=== PATIENT | male | born 1970 | race Caucasian/White ===

== ENCOUNTER 2020-07-19 11:51 | Emergency (ER) | payer SELFPAY ==
[~2020-07-19] VITALS: Ht 180.3 cm; Wt 108.9 kg
[2020-07-19 12:37] LABS: BASO % 0.6 % (0.0-1.0); EOS # 0.4 10*3/uL (0.0-0.4); EOS % 5.1 % (1.0-4.0); HEMATOCRIT 47.5 % (42.0-52.0); LYMPH % 27.8 % (27.0-41.0); MEAN CORPUSCULAR HGB 29.7 pg (27.0-31.0); MEAN CORPUSCULAR HGB CONC 35.8 g/dl (33.0-37.0); MEAN PLATELET VOLUME 10.6 fl (9.6-12.3); MONO # 0.6 10*3/uL (0.1-1.0); MONO % 8.6 % (3.0-9.0); NEUT # 4.1 10*3/uL (2.3-7.9); NEUT % 57.6 % (47.0-73.0); PLATELET COUNT AUTOMATED 297 10*3/uL (130-400); RED BLOOD COUNT 5.72 10*6/uL (4.50-5.90); RED CELL DISTRI WIDTH 12.8 % (0-14.5); WHITE BLOOD COUNT 7.1 10*3/uL (4.8-10.8)
[2020-07-19 13:07] LABS: ALBUMIN 3.9 gm/dl (3.1-4.5); ALKALINE PHOSPHATASE 107 U/L (45-117); BUN 12 mg/dl (7-24); CHLORIDE 102 mmol/L (98-107); CREATININE 0.85 mg/dL (0.70-1.30); LIPASE 88 U/L (73-393); SGOT/AST 46 IU/L (3-35); SODIUM 134 mmol/L (136-145); TOTAL PROTEIN 8.4 gm/dL (6.4-8.2)
[2020-07-19 13:11] LABS: BILIRUBIN Negative (Negative); BLOOD Trace-Lysed (Negative); CLARITY Clear (Clear); COLOR Yellow (Yellow); GLUCOSE 3+ (Negative); KETONE 1+ (Negative); LEUKO ESTERASE Negative (Negative); NITRITE Negative (Negative); PH 5.5 (4.5-8.0); SPECIFIC GRAVITY >= 1.030 (1.001-1.030); UROBILINOGEN 0.2 E.U./dl (0.0-1.0)
[2020-07-19 13:18] LABS: SGPT/ALT 46 U/L (12-78)
[2020-07-19 13:19] LABS: POTASSIUM 4.7 mmol/L (3.5-5.1)
[2020-07-19 13:40] LABS: BACTERIA TRACE; EPITHELIAL CELLS 0-2; WBC 0-2 wbc/hpf (0-5)
== END 2020-07-19 13:51 | disposition home or self-care (01) ==
LOC: ED 11:51
PROVIDERS: Nurse Practitioner Family
DX: K42.9 Umbilical hernia without obstruction or gangrene (principal); Z88.8 Allergy status to other drugs, medicaments and biological substances

== ENCOUNTER 2021-08-02 03:05 | Emergency (ER) | payer OTHER ==
[~2021-08-02] VITALS: Ht 177.8 cm; Wt 108.9 kg
[2021-08-02] MEDS ORDERED: METFORMIN HYD1000 MG PO (03:32)
[2021-08-02] MEDS ORDERED: ZESTORETIC 10-1 EACH PO (03:33)
[2021-08-02] MEDS ORDERED: LIPITOR20 MG PO (03:33)
[2021-08-02] MEDS ORDERED: JANUVIA50 MG PO (03:33)
[2021-08-02 03:54] LABS: BILIRUBIN Negative (Negative); BLOOD Negative (Negative); CLARITY Clear (Clear); COLOR Yellow (Yellow); GLUCOSE 3+ (Negative); KETONE 1+ (Negative); LEUKO ESTERASE Negative (Negative); NITRITE Negative (Negative); PH 6.5 (4.5-8.0); SPECIFIC GRAVITY >= 1.030 (1.001-1.030)
[2021-08-02] MEDS ORDERED: ULTRAM50 MG PO (04:56)
[2021-08-02] MEDS ORDERED: PREDNISONE20 M1 PO (04:56)
[2021-08-02] MEDS ORDERED: CYCLOBENZAPRINE10 MG PO (04:56)
== END 2021-08-02 05:07 | disposition home or self-care (01) ==
LOC: ED 03:05
PROVIDERS: Emergency Medicine
DX: S39.012A Strain of muscle, fascia and tendon of lower back, initial encounter (principal); M62.830 Muscle spasm of back; G58.8 Other specified mononeuropathies; Z88.6 Allergy status to analgesic agent; Z88.8 Allergy status to other drugs, medicaments and biological substances; Z79.899 Other long term (current) drug therapy; X58.XXXA Exposure to other specified factors, initial encounter; Y93.89 Activity, other specified; Y92.89 Other specified places as the place of occurrence of the external cause; Y99.8 Other external cause status

== ENCOUNTER 2023-01-05 11:47 | Inpatient (IN) | payer OTHER ==
[~2023-01-05] VITALS: Ht 177.8 cm; Wt 107.3 kg
[2023-01-05 01:04] VITALS: BP 103/61
[2023-01-05 01:28] VITALS: BP 110/53
[~2023-01-05 11:47] MED LIST: CYCLOBENZAPRINE10 MG PO; JANUVIA50 MG PO; LIPITOR20 MG PO; METFORMIN HYD1000 MG PO; PREDNISONE20 M1 PO; ULTRAM50 MG PO; ZESTORETIC 10-1 EACH PO
[2023-01-05 12:05] VITALS: BP 149/87
[2023-01-05 13:23] LABS: BILIRUBIN Negative (Negative); BLOOD Negative (Negative); CLARITY Clear (Clear); COLOR Yellow (Yellow); GLUCOSE 3+ (Negative); KETONE Trace (Negative); LEUKO ESTERASE Negative (Negative); NITRITE Negative (Negative); SPECIFIC GRAVITY >= 1.030 (1.001-1.030); UROBILINOGEN 0.2 E.U./dl (0.0-1.0)
[2023-01-05 13:28] LABS: ALKALINE PHOSPHATASE 53 U/L (46-116); BUN 14 mg/dl (9-23); CHLORIDE 96 mmol/L (98-107); LIPASE 81 U/L (12-53); SGPT/ALT 57 U/L (10-49); TOTAL PROTEIN 7.9 gm/dL (6.0-8.0)
[2023-01-05 13:53] LABS: BACTERIA 1+; RBC 0-2 rbc/hpf (0-2)
[2023-01-05 14:43] LABS: HEMATOCRIT 41.7 % (42.0-52.0); MEAN CELL VOLUME 82.7 fl (80.0-94.0); MEAN PLATELET VOLUME 11.3 fl (9.6-12.3); PLATELET COUNT AUTOMATED 281 10*3/uL (130-400); RED BLOOD COUNT 5.04 10*6/uL (4.50-5.90)
[2023-01-05 15:22] LABS: MANUAL DIFF REFLEX YES; MEAN CORPUSCULAR HGB 28.2 pg (27.0-31.0); MEAN CORPUSCULAR HGB CONC 34.1 g/dl (33.0-37.0)
[2023-01-05 15:23] LABS: WHITE BLOOD COUNT 11.8 10*3/uL (4.8-10.8)
[2023-01-05 15:25] LABS: BASOPHILS 2 % (0-1); OVALOCYTES FEW; PLATELET SUFFICIENCY NORMAL (NORMAL); POLYCHROMASIA SLIGHT; TOTAL CELLS COUNTED 100 #CELLS
[2023-01-05 15:59] LABS: ACT PARTIAL THROMBO TIME 28.3 SECONDS (20.0-32.1); INTERNATIONAL NORM RATIO 0.9 (2.0-3.5)
[2023-01-05] MEDS ORDERED: ASPIRIN ADULT L81 M2 PO (17:19)
[2023-01-05] MEDS ORDERED: FENOFIBRATE MI134 MG PO (17:19)
[2023-01-05] MEDS ORDERED: ZESTORETIC 10-1 EACH PO (17:20)
[2023-01-05] MEDS ORDERED: ATORVASTATIN CA40 M1 PO (17:20)
[2023-01-05] MEDS ORDERED: METFORMIN XR500 MG PO (17:20)
[2023-01-05 18:08] LABS: BUN 13 mg/dl (9-23); CHLORIDE 96 mmol/L (98-107)
[2023-01-05 18:44] LABS: POTASSIUM 4.7 mmol/L (3.4-5.1)
[2023-01-05] MEDS ORDERED: JANUVIA100 MG PO (21:15)
[2023-01-06] VITALS (15 sets, daily range): BP systolic 70–137; BP diastolic 37–83
[2023-01-06 07:34] LABS: BASO # 0.1 10*3/uL (0.0-0.1); BASO % 0.4 % (0.0-1.0); EOS # 0.3 10*3/uL (0.0-0.4); EOS % 2.8 % (1.0-4.0); HEMATOCRIT 41.8 % (42.0-52.0); LYMPH # 1.8 10*3/uL (1.3-4.4); LYMPH % 14.8 % (27.0-41.0); MEAN CELL VOLUME 84.4 fl (80.0-94.0); MEAN CORPUSCULAR HGB 29.9 pg (27.0-31.0); MEAN CORPUSCULAR HGB CONC 35.4 g/dl (33.0-37.0); MEAN PLATELET VOLUME 10.9 fl (9.6-12.3); MONO # 1.3 10*3/uL (0.1-1.0); MONO % 10.7 % (3.0-9.0); NEUT # 8.6 10*3/uL (2.3-7.9); NEUT % 70.8 % (47.0-73.0); PLATELET COUNT AUTOMATED 251 10*3/uL (130-400); RED BLOOD COUNT 4.95 10*6/uL (4.50-5.90); RED CELL DISTRI WIDTH 13.9 % (0-14.5); WHITE BLOOD COUNT 12.2 10*3/uL (4.8-10.8)
[2023-01-06 08:10] LABS: ALKALINE PHOSPHATASE 61 U/L (46-116); BUN 12 mg/dl (9-23); CHLORIDE 94 mmol/L (98-107); LIPASE 48 U/L (12-53); POTASSIUM 4.1 mmol/L (3.4-5.1); SGPT/ALT 33 U/L (10-49)
[2023-01-06 17:03] LABS: HEMATOCRIT 36.1 % (42.0-52.0)
[2023-01-06 19:08] LABS: BASO % 0.2 % (0.0-1.0); EOS % 0.2 % (1.0-4.0); LYMPH % 7.9 % (27.0-41.0); MEAN CELL VOLUME 88.3 fl (80.0-94.0); MEAN CORPUSCULAR HGB 29.9 pg (27.0-31.0); MEAN CORPUSCULAR HGB CONC 33.8 g/dl (33.0-37.0); MEAN PLATELET VOLUME 11.1 fl (9.6-12.3); MONO # 1.4 10*3/uL (0.1-1.0); MONO % 11.2 % (3.0-9.0); NEUT # 10.3 10*3/uL (2.3-7.9); NEUT % 80.1 % (47.0-73.0); PLATELET COUNT AUTOMATED 233 10*3/uL (130-400); RED BLOOD COUNT 3.85 10*6/uL (4.50-5.90); RED CELL DISTRI WIDTH 14.2 % (0-14.5); WHITE BLOOD COUNT 12.9 10*3/uL (4.8-10.8)
[2023-01-06 21:14] LABS: BASO % 0.3 % (0.0-1.0); EOS % 0.2 % (1.0-4.0); HEMATOCRIT 32.7 % (42.0-52.0); LYMPH # 1.1 10*3/uL (1.3-4.4); LYMPH % 8.5 % (27.0-41.0); MEAN CELL VOLUME 88.9 fl (80.0-94.0); MEAN CORPUSCULAR HGB 29.1 pg (27.0-31.0); MEAN CORPUSCULAR HGB CONC 32.7 g/dl (33.0-37.0); MEAN PLATELET VOLUME 10.9 fl (9.6-12.3); MONO # 1.5 10*3/uL (0.1-1.0); MONO % 11.8 % (3.0-9.0); NEUT # 9.8 10*3/uL (2.3-7.9); NEUT % 78.8 % (47.0-73.0); PLATELET COUNT AUTOMATED 219 10*3/uL (130-400); RED BLOOD COUNT 3.68 10*6/uL (4.50-5.90); RED CELL DISTRI WIDTH 14.1 % (0-14.5); WHITE BLOOD COUNT 12.4 10*3/uL (4.8-10.8)
[2023-01-07] VITALS (7 sets, daily range): BP systolic 87–110; BP diastolic 48–60
[2023-01-07 02:03] LABS: BASO % 0.2 % (0.0-1.0); EOS % 0.2 % (1.0-4.0); HEMATOCRIT 29.9 % (42.0-52.0); LYMPH % 10.5 % (27.0-41.0); MEAN CELL VOLUME 88.2 fl (80.0-94.0); MEAN CORPUSCULAR HGB 29.2 pg (27.0-31.0); MEAN CORPUSCULAR HGB CONC 33.1 g/dl (33.0-37.0); MEAN PLATELET VOLUME 10.6 fl (9.6-12.3); MONO # 1.1 10*3/uL (0.1-1.0); MONO % 11.2 % (3.0-9.0); NEUT # 7.4 10*3/uL (2.3-7.9); NEUT % 77.6 % (47.0-73.0); PLATELET COUNT AUTOMATED 209 10*3/uL (130-400); RED BLOOD COUNT 3.39 10*6/uL (4.50-5.90); RED CELL DISTRI WIDTH 14.1 % (0-14.5); WHITE BLOOD COUNT 9.6 10*3/uL (4.8-10.8)
[2023-01-07 06:19] LABS: BASO % 0.2 % (0.0-1.0); EOS # 0.1 10*3/uL (0.0-0.4); EOS % 0.7 % (1.0-4.0); HEMATOCRIT 28.8 % (42.0-52.0); LYMPH # 1.2 10*3/uL (1.3-4.4); LYMPH % 13.5 % (27.0-41.0); MEAN CELL VOLUME 90.6 fl (80.0-94.0); MEAN CORPUSCULAR HGB 29.2 pg (27.0-31.0); MEAN CORPUSCULAR HGB CONC 32.3 g/dl (33.0-37.0); MEAN PLATELET VOLUME 11.2 fl (9.6-12.3); MONO # 1.2 10*3/uL (0.1-1.0); MONO % 12.7 % (3.0-9.0); NEUT # 6.6 10*3/uL (2.3-7.9); NEUT % 72.5 % (47.0-73.0); PLATELET COUNT AUTOMATED 205 10*3/uL (130-400); RED BLOOD COUNT 3.18 10*6/uL (4.50-5.90); WHITE BLOOD COUNT 9.1 10*3/uL (4.8-10.8)
[2023-01-07 06:25] LABS: ALKALINE PHOSPHATASE 51 U/L (46-116); BUN 18 mg/dl (9-23); CHLORIDE 100 mmol/L (98-107); POTASSIUM 4.1 mmol/L (3.4-5.1); SGPT/ALT 192 U/L (10-49); TOTAL PROTEIN 5.7 gm/dL (6.0-8.0)
[2023-01-07 10:30] LABS: BILIRUBIN Negative (Negative); BLOOD Negative (Negative); CLARITY Cloudy (Clear); COLOR Yellow (Yellow); GLUCOSE 3+ (Negative); KETONE Negative (Negative); LEUKO ESTERASE 1+ (Negative); NITRITE Negative (Negative); PH 5.5 (4.5-8.0); SPECIFIC GRAVITY 1.025 (1.001-1.030); UROBILINOGEN 0.2 E.U./dl (0.0-1.0)
[2023-01-07 10:50] LABS: BACTERIA 2+; WBC TNTC wbc/hpf (0-5)
[2023-01-07 10:51] LABS: YEAST 3+
[2023-01-07 17:00] LABS: BASO % 0.4 % (0.0-1.0); EOS # 0.3 10*3/uL (0.0-0.4); EOS % 3.7 % (1.0-4.0); HEMATOCRIT 25.8 % (42.0-52.0); LYMPH # 1.3 10*3/uL (1.3-4.4); LYMPH % 15.7 % (27.0-41.0); MEAN CELL VOLUME 88.7 fl (80.0-94.0); MEAN CORPUSCULAR HGB 29.6 pg (27.0-31.0); MEAN CORPUSCULAR HGB CONC 33.3 g/dl (33.0-37.0); MEAN PLATELET VOLUME 10.3 fl (9.6-12.3); MONO # 1.3 10*3/uL (0.1-1.0); NEUT # 5.5 10*3/uL (2.3-7.9); NEUT % 64.8 % (47.0-73.0); PLATELET COUNT AUTOMATED 167 10*3/uL (130-400); RED BLOOD COUNT 2.91 10*6/uL (4.50-5.90); WHITE BLOOD COUNT 8.5 10*3/uL (4.8-10.8)
[2023-01-07 17:14] LABS: BUN 22 mg/dl (9-23); CHLORIDE 102 mmol/L (98-107); POTASSIUM 3.7 mmol/L (3.4-5.1)
[2023-01-08] VITALS: BP 144/59
[2023-01-08 04:14] VITALS: BP 113/60
[2023-01-08 06:23] LABS: ALKALINE PHOSPHATASE 64 U/L (46-116); BUN 14 mg/dl (9-23); CHLORIDE 103 mmol/L (98-107); POTASSIUM 3.7 mmol/L (3.4-5.1); SGPT/ALT 222 U/L (10-49); TOTAL PROTEIN 5.6 gm/dL (6.0-8.0)
[2023-01-08 06:26] LABS: BASO % 0.3 % (0.0-1.0); EOS # 0.4 10*3/uL (0.0-0.4); EOS % 4.6 % (1.0-4.0); HEMATOCRIT 24.5 % (42.0-52.0); LYMPH # 1.3 10*3/uL (1.3-4.4); MEAN CELL VOLUME 88.4 fl (80.0-94.0); MEAN CORPUSCULAR HGB 28.9 pg (27.0-31.0); MEAN CORPUSCULAR HGB CONC 32.7 g/dl (33.0-37.0); MEAN PLATELET VOLUME 11.3 fl (9.6-12.3); MONO # 1.2 10*3/uL (0.1-1.0); MONO % 14.2 % (3.0-9.0); NEUT # 5.7 10*3/uL (2.3-7.9); NEUT % 65.6 % (47.0-73.0); PLATELET COUNT AUTOMATED 185 10*3/uL (130-400); RED BLOOD COUNT 2.77 10*6/uL (4.50-5.90); RED CELL DISTRI WIDTH 13.8 % (0-14.5); WHITE BLOOD COUNT 8.7 10*3/uL (4.8-10.8)
[2023-01-08 08:00] VITALS: BP 134/78
[2023-01-08 12:00] VITALS: BP 129/64
[2023-01-08 16:00] VITALS: BP 111/65
[2023-01-08 20:00] VITALS: BP 124/77
[2023-01-09] VITALS: BP 118/70
[2023-01-09 04:00] VITALS: BP 135/81
[2023-01-09 05:39] LABS: ALKALINE PHOSPHATASE 79 U/L (46-116); BUN 8 mg/dl (9-23); CHLORIDE 100 mmol/L (98-107); POTASSIUM 4.3 mmol/L (3.4-5.1); SGPT/ALT 170 U/L (10-49); TOTAL PROTEIN 6.3 gm/dL (6.0-8.0)
[2023-01-09 06:15] LABS: BASO % 0.4 % (0.0-1.0); EOS # 0.5 10*3/uL (0.0-0.4); EOS % 5.6 % (1.0-4.0); HEMATOCRIT 25.5 % (42.0-52.0); LYMPH # 1.6 10*3/uL (1.3-4.4); LYMPH % 17.2 % (27.0-41.0); MEAN CELL VOLUME 88.2 fl (80.0-94.0); MEAN CORPUSCULAR HGB 29.4 pg (27.0-31.0); MEAN CORPUSCULAR HGB CONC 33.3 g/dl (33.0-37.0); MEAN PLATELET VOLUME 11.1 fl (9.6-12.3); MONO # 1.3 10*3/uL (0.1-1.0); MONO % 13.9 % (3.0-9.0); NEUT # 5.6 10*3/uL (2.3-7.9); NEUT % 62.3 % (47.0-73.0); PLATELET COUNT AUTOMATED 237 10*3/uL (130-400); RED BLOOD COUNT 2.89 10*6/uL (4.50-5.90); RED CELL DISTRI WIDTH 13.5 % (0-14.5)
[2023-01-09 08:00] VITALS: BP 111/65
[2023-01-09 12:00] VITALS: BP 130/81
[2023-01-09 16:00] VITALS: BP 132/80
[2023-01-09 20:00] VITALS: BP 115/90
[2023-01-10] VITALS: BP 114/77
[2023-01-10 07:01] LABS: BASO % 0.5 % (0.0-1.0); EOS # 0.5 10*3/uL (0.0-0.4); EOS % 5.7 % (1.0-4.0); HEMATOCRIT 27.6 % (42.0-52.0); LYMPH # 1.5 10*3/uL (1.3-4.4); LYMPH % 17.6 % (27.0-41.0); MEAN CELL VOLUME 87.9 fl (80.0-94.0); MEAN CORPUSCULAR HGB 29.3 pg (27.0-31.0); MEAN CORPUSCULAR HGB CONC 33.3 g/dl (33.0-37.0); MEAN PLATELET VOLUME 10.6 fl (9.6-12.3); MONO # 1.3 10*3/uL (0.1-1.0); NEUT # 5.3 10*3/uL (2.3-7.9); NEUT % 60.5 % (47.0-73.0); PLATELET COUNT AUTOMATED 301 10*3/uL (130-400); RED BLOOD COUNT 3.14 10*6/uL (4.50-5.90); RED CELL DISTRI WIDTH 13.5 % (0-14.5); WHITE BLOOD COUNT 8.7 10*3/uL (4.8-10.8)
[2023-01-10 07:37] LABS: ALKALINE PHOSPHATASE 109 U/L (46-116); BUN 6 mg/dl (9-23); CHLORIDE 99 mmol/L (98-107); POTASSIUM 3.8 mmol/L (3.4-5.1); SGPT/ALT 134 U/L (10-49); TOTAL PROTEIN 6.8 gm/dL (6.0-8.0)
[2023-01-10 08:00] VITALS: BP 128/76
[2023-01-10 12:00] VITALS: BP 138/87
[2023-01-10 16:00] VITALS: BP 122/85
[2023-01-10 20:00] VITALS: BP 111/62
[2023-01-11] VITALS: BP 122/69
[2023-01-11 06:54] LABS: BASO % 0.4 % (0.0-1.0); EOS # 0.5 10*3/uL (0.0-0.4); HEMATOCRIT 28.3 % (42.0-52.0); LYMPH # 1.4 10*3/uL (1.3-4.4); LYMPH % 15.3 % (27.0-41.0); MEAN CELL VOLUME 87.1 fl (80.0-94.0); MEAN CORPUSCULAR HGB 28.3 pg (27.0-31.0); MEAN CORPUSCULAR HGB CONC 32.5 g/dl (33.0-37.0); MONO # 1.4 10*3/uL (0.1-1.0); MONO % 15.3 % (3.0-9.0); NEUT # 5.7 10*3/uL (2.3-7.9); NEUT % 62.5 % (47.0-73.0); NUCLEATED RED BLOOD CELL 0.2 % (0.0-0.0); PLATELET COUNT AUTOMATED 344 10*3/uL (130-400); RED BLOOD COUNT 3.25 10*6/uL (4.50-5.90); RED CELL DISTRI WIDTH 13.4 % (0-14.5); WHITE BLOOD COUNT 9.1 10*3/uL (4.8-10.8)
[2023-01-11 07:18] LABS: ALKALINE PHOSPHATASE 115 U/L (46-116); BUN 7 mg/dl (9-23); CHLORIDE 100 mmol/L (98-107); POTASSIUM 3.9 mmol/L (3.4-5.1); SGPT/ALT 104 U/L (10-49); TOTAL PROTEIN 6.9 gm/dL (6.0-8.0)
[2023-01-11 08:19] VITALS: BP 110/47
[2023-01-11 12:43] VITALS: BP 134/67
[2023-01-11] MEDS ORDERED: Humalog SQ (12:54)
[2023-01-11] MEDS ORDERED: PROTONIX20 MG PO (12:54)
[2023-01-11] MEDS ORDERED: Lantus SC (12:54)
[2023-01-11] MEDS ORDERED: HYDROCODONE-AC1 EAC1 PO (12:56)
== END 2023-01-11 14:32 | disposition home or self-care (01) | DRG 418 ==
LOC: ED 11:47 → EDHOLD 16:41 → ICCU 16:41 → 4E 16:41 → ICCU 01-06 18:59 → 5E 01-09 15:45
PROVIDERS: Emergency Medicine; Family Medicine; Internal Medicine; Physical Therapist; Student in an Organized Health Care Education/Training Program; Surgery; Surgery Surgical Critical Care; ADMIT Internal Medicine; ATTEND Internal Medicine
PROC: 0FT44ZZ Resection of Gallbladder, Percutaneous Endoscopic Approach (ICD-10-PCS; principal; 2023-01-06)
DX: K85.10 Biliary acute pancreatitis without necrosis or infection (principal); E87.1 Hypo-osmolality and hyponatremia; I10 Essential (primary) hypertension; E87.8 Other disorders of electrolyte and fluid balance, not elsewhere classified; R74.01 Elevation of levels of liver transaminase levels; E87.5 Hyperkalemia; D64.9 Anemia, unspecified; K76.0 Fatty (change of) liver, not elsewhere classified; I95.9 Hypotension, unspecified; E11.9 Type 2 diabetes mellitus without complications; K29.80 Duodenitis without bleeding; K80.20 Calculus of gallbladder without cholecystitis without obstruction; K40.90 Unilateral inguinal hernia, without obstruction or gangrene, not specified as recurrent; Z88.6 Allergy status to analgesic agent; Z88.8 Allergy status to other drugs, medicaments and biological substances; Z82.49 Family history of ischemic heart disease and other diseases of the circulatory system; Z83.3 Family history of diabetes mellitus; Z79.2 Long term (current) use of antibiotics; Z79.899 Other long term (current) drug therapy; Z79.84 Long term (current) use of oral hypoglycemic drugs

== ENCOUNTER 2025-01-24 10:56 | Emergency (ER) | payer OTHER ==
[~2025-01-24] VITALS: Ht 165.1 cm; Wt 149.7 kg
[~2025-01-24 10:56] MED LIST changes: +ASPIRIN ADULT L81 M2 PO; +ATORVASTATIN CA40 M1 PO; +FENOFIBRATE MI134 MG PO; +HYDROCODONE-AC1 EAC1 PO; +Humalog SQ; +JANUVIA100 MG PO; +Lantus SC; +METFORMIN XR500 MG PO; +PROTONIX20 MG PO
[2025-01-24] MEDS ORDERED: NAPROXEN 250 MG TAB PO ONE (11:10)
[2025-01-24] MEDS ORDERED: Acetaminophen/Hydrocodone 5 MG/325 MG TABLET PO ONE (11:10)
[2025-01-24] MEDS ORDERED: NAPROSYN500 MG PO (12:15)
== END 2025-01-24 12:21 | disposition home or self-care (01) ==
LOC: ED 10:56
DX: M79.641 Pain in right hand (principal); M25.531 Pain in right wrist; R60.0 Localized edema; Z88.6 Allergy status to analgesic agent; Z88.8 Allergy status to other drugs, medicaments and biological substances; Z79.4 Long term (current) use of insulin; Z79.899 Other long term (current) drug therapy; Z79.82 Long term (current) use of aspirin; Z98.890 Other specified postprocedural states; X50.3XXA Overexertion from repetitive movements, initial encounter; Y93.89 Activity, other specified; Y92.89 Other specified places as the place of occurrence of the external cause; Y99.8 Other external cause status